=== PATIENT | female | born 1990 | race Caucasian/White ===

== ENCOUNTER 2018-12-02 06:19 | Emergency (ER) | payer MEDICARE, MEDICAID, SELFPAY ==
[2018-12-02 06:22] VITALS: BP 146/92; PULSE 87; RESP 16; TEMP 37; O2SAT 96
--- NOTE | 2018-12-02 06:27 | W.ED.GENAD ---
Discharge Plan Disposition Patient Disposition: HOME Condition: Stable Discharge Details Chief Complaint: DentalOral Clinical Impression: Odontalgia Primary Care Provider: Bruna Caballero ED Provider: Hung Bedolla Home Meds and New Rx's Prescriptions: New clindamycin HCl 300 mg capsule 300 mg PO Q6H Qty: 28 RF: 0 No Action hydroxyzine HCl 25 MG tablet 25 mg PO TID PRNQty: 0 RF: 0 trazodone 100 MG tablet 200 mg PO HS RF: 0 aripiprazole 5 MG tablet 5 mg PO DAILY RF: 0 lisdexamfetamine [Vyvanse] 60 MG capsule 60 mg PO DAILY RF: 0 metformin 500 MG tablet 500 mg PO Q12H Qty: 180 RF: 4 venlafaxine 75 MG tablet 75 mg PO DAILY RF: 0 venlafaxine 150 MG tablet extended release 24hr 2 tab PO DAILY RF: 0 levothyroxine 175 MCG tablet 175 mcg PO DAILY Qty: 90 RF: 1 levothyroxine 50 MCG tablet 50 mcg PO DAILY Qty: 90 RF: 4 ranitidine HCl 150 MG tablet 150 mg PO BID Qty: 180 RF: 4 metformin 500 MG tablet 500 mg PO BID Qty: 60 RF: 0 lithium carbonate 300 MG capsule 300 mg PO BID MDD 600 RF: 0 Discharge Instructions Instructions: Toothache (ED) Additional Instructions: Please follow-up with dentistry as discussed. Take antibiotics as prescribed. Tylenol and/or ibuprofen as needed for pain. Return for any acute concern Medical Decision Making 28-year-old female presents from home with 2 days of dental pain. She has numerous dental caries no partial fracture of left lower premolar. She is allergic to penicillin. Placed on a course of clindamycin. She understands the need to follow-up with dentistry. She is stable for outpatient management. HPI General Mode of arrival: ambulatory. Date/Time Provider Initiated Documentation: 12/02/18 06:24. Limitations to Documentation: no limitations. Information obtained by: patient. History of Present Illness 28 year old F presents to the emergency department with the chief complaint of Left lower dental pain x2 days, described as moderate, Quality is described as dull and constant, and is localized to the face and mouth. Patient reports no radiation. Patient started experiencing this day(s) and it has been constant. No relieving factors improve symptom(s), Eating worsens symptoms . Patient notes no other symptoms.. Patient did receive the following treatments prior to arrival, NSAID Related Data Home Medications Medication Instructions Recorded Confirmed hydroxyzine HCl 25 mg PO TID PRN #0 tab 10/21/14 03/18/16 lithium carbonate 300 mg PO BID MDD 600 11/12/15 03/18/16 aripiprazole 5 mg PO DAILY 06/15/16 lisdexamfetamine [Vyvanse] 60 mg PO DAILY tab-cap 06/15/16 metformin 500 mg PO Q12H #180 tab 11/02/16 levothyroxine 175 mcg PO DAILY #90 tab-cap 11/14/16 levothyroxine 50 mcg PO DAILY #90 tab-cap 01/10/17 ranitidine HCl 150 mg PO BID #180 tab-cap 03/01/17 metformin 500 mg PO BID #60 tab-cap 11/29/17 clindamycin HCl 300 mg PO Q6H #28 cap 12/02/18 Previous Rx's Medication Instructions Recorded metformin 500 mg PO BID #60 tab-cap 11/29/17 clindamycin HCl 300 mg PO Q6H #28 cap 12/02/18 Allergies Allergy/AdvReac Type Severity Reaction Status Date / Time Penicillins Allergy Intermediate Skin Rash Unverified 12/02/18 06:31 shellfish derived Allergy Unverified 12/02/18 06:31 Review of Systems Review of Systems No change to voice or drooling. 6 systems reviewed and otherwise negative [facility] Surgical History Cervical Conization/LEEP Family History Mother Diabetes Social History Smoking/Tobacco Use Status: Current every day Tobacco Type: cigarettes Drug use: Never Do you feel safe at home: Yes Do you feel safe in your relationship?: Yes Exam Narrative Exam Narrative: GEN: awake, alert, oriented 3. Pleasant, well groomed, interactive. HEAD: Normocephalic, atraumatic ENT: Mucous membranes moist, oropharynx with multiple dental caries. Partial fracture of left lower premolar. No fluctuance. External ear exam unremarkable EYES: PERRL, EOMI NECK: Full ROM, no DOMINIQUE, no menigismus EXT: Full ROM, no edema, no rash Neuro: Grossly normal neurologic exam, conversant, interactive. Psych: Speech fluent, thoughts congruent, affect normal
--- NOTE | 2018-12-02 06:30 | ED.GENADUL_ITS ---
Discharge Plan Disposition Patient Disposition: HOME Condition: Stable Discharge Details Chief Complaint: DentalOral Clinical Impression: Odontalgia Primary Care Provider: Bruna Caballero ED Provider: Hung Bedolla Home Meds and New Rx's Prescriptions: New clindamycin HCl 300 mg capsule 300 mg PO Q6H Qty: 28 RF: 0 No Action hydroxyzine HCl 25 MG tablet 25 mg PO TID PRNQty: 0 RF: 0 trazodone 100 MG tablet 200 mg PO HS RF: 0 aripiprazole 5 MG tablet 5 mg PO DAILY RF: 0 lisdexamfetamine [Vyvanse] 60 MG capsule 60 mg PO DAILY RF: 0 metformin 500 MG tablet 500 mg PO Q12H Qty: 180 RF: 4 venlafaxine 75 MG tablet 75 mg PO DAILY RF: 0 venlafaxine 150 MG tablet extended release 24hr 2 tab PO DAILY RF: 0 levothyroxine 175 MCG tablet 175 mcg PO DAILY Qty: 90 RF: 1 levothyroxine 50 MCG tablet 50 mcg PO DAILY Qty: 90 RF: 4 ranitidine HCl 150 MG tablet 150 mg PO BID Qty: 180 RF: 4 metformin 500 MG tablet 500 mg PO BID Qty: 60 RF: 0 lithium carbonate 300 MG capsule 300 mg PO BID MDD 600 RF: 0 Discharge Instructions Instructions: Toothache (ED) Additional Instructions: Please follow-up with dentistry as discussed. Take antibiotics as prescribed. Tylenol and/or ibuprofen as needed for pain. Return for any acute concern Medical Decision Making 28-year-old female presents from home with 2 days of dental pain. She has numerous dental caries no partial fracture of left lower premolar. She is allergic to penicillin. Placed on a course of clindamycin. She understands the need to follow-up with dentistry. She is stable for outpatient management. HPI General Mode of arrival: ambulatory . Date/Time Provider Initiated Documentation: 12/02/18 06:24 . Limitations to Documentation: no limitations . Information obtained by: patient . History of Present Illness 28 year old F presents to the emergency department with the chief complaint of Left lower dental pain x2 days, described as moderate, Quality is described as dull and constant, and is localized to the face and mouth. Patient reports no radiation. Patient started experiencing this day(s) and it has been constant. No relieving factors improve symptom(s), Eating worsens symptoms . Patient notes no other symptoms.. Patient did receive the following treatments prior to arrival, NSAID Related Data Home Medications Medication Instructions Recorded Confirmed hydroxyzine HCl 25 mg PO TID PRN #0 tab 10/21/14 03/18/16 lithium carbonate 300 mg PO BID MDD 600 11/12/15 03/18/16 aripiprazole 5 mg PO DAILY 06/15/16 lisdexamfetamine [Vyvanse] 60 mg PO DAILY tab-cap 06/15/16 metformin 500 mg PO Q12H #180 tab 11/02/16 levothyroxine 175 mcg PO DAILY #90 tab-cap 11/14/16 levothyroxine 50 mcg PO DAILY #90 tab-cap 01/10/17 ranitidine HCl 150 mg PO BID #180 tab-cap 03/01/17 metformin 500 mg PO BID #60 tab-cap 11/29/17 clindamycin HCl 300 mg PO Q6H #28 cap 12/02/18 Previous Rx's Medication Instructions Recorded metformin 500 mg PO BID #60 tab-cap 11/29/17 clindamycin HCl 300 mg PO Q6H #28 cap 12/02/18 Allergies Allergy/AdvReac Type Severity Reaction Status Date / Time Penicillins Allergy Intermediate Skin Rash Unverified 12/02/18 06:31 shellfish derived Allergy Unverified 12/02/18 06:31 Review of Systems Review of Systems No change to voice or drooling. 6 systems reviewed and otherwise negative [facility] Surgical History Cervical Conization/LEEP Family History Mother Diabetes Social History Smoking/Tobacco Use Status: Current every day Tobacco Type: cigarettes Drug use: Never Do you feel safe at home: Yes Do you feel safe in your relationship?: Yes Exam Narrative Exam Narrative: GEN: awake, alert, oriented 3. Pleasant, well groomed, interactive. HEAD: Normocephalic, atraumatic ENT: Mucous membranes moist, oropharynx with multiple dental caries. Partial fracture of left lower premolar. No fluctuance. External ear exam unremarkable EYES: PERRL, EOMI NECK: Full ROM, no DOMINIQUE, no menigismus EXT: Full ROM, no edema, no rash Neuro: Grossly normal neurologic exam, conversant, interactive. Psych: Speech fluent, thoughts congruent, affect normal
[2018-12-02] MEDS: Ibuprofen 800 MG TAB PO (06:37)
[2018-12-02] MEDS: Clindamycin 300 MG CAP PO (06:38)
== END 2018-12-02 06:42 | disposition home or self-care (01) ==
LOC: ER 07:55
PROVIDERS: Emergency Provider Emergency Medicine
DX: K08.89 Other specified disorders of teeth and supporting structures (principal); K02.9 Dental caries, unspecified
CPT/HCPCS: 99283

== ENCOUNTER 2019-05-13 02:46 | Outpatient (CLI) | payer MEDICARE, MEDICAID, SELFPAY | END 2019-05-13 03:06 | PROVIDERS: Visit Provider Nurse Practitioner Family | DX: Z79.899 Other long term (current) drug therapy (principal); R00.0 Tachycardia, unspecified | CPT/HCPCS: 93005; 93010 ==

== ENCOUNTER 2019-06-23 00:07 | Outpatient (CLI) | payer MEDICARE, MEDICAID, SELFPAY ==
--- NOTE | 2019-06-23 09:10 | DI.RAD_ITS ---
EXAM: XR CHEST 2V PA LATERAL INDICATION: DYSPNEA, R06.00. COMPARISON: No exams were available for comparison TECHNIQUE: 2D digital imaging was performed. FINDINGS: The heart is enlarged. There is prominence of the pulmonary vasculature and peribronchial thickening . There are minimally increased interstitial changes. There is mild scarring at the right lung apex . No effusions or focal areas of consolidation are seen. IMPRESSION: Cardiomegaly and mild CHF.
--- NOTE | 2019-06-23 09:15 | DI.RAD_ITS ---
EXAM: XR HIP RT COMPLETE AP PELVIS INDICATION: HIP JOINT PAIN RT, [id number]. COMPARISON: No exams were available for comparison TECHNIQUE: 2D digital imaging was performed. FINDINGS: The exam is limited by the patient's body habitus and upright technique. The hip joint spaces are we ll maintained. No bony deformity or erosive soft tissue or joint space calcifications are seen. IMPRESSION: Negative pelvis and right hip.
== END 2019-06-23 00:27 ==
PROVIDERS: PCP Nurse Practitioner Family; Visit Provider Nurse Practitioner Family
DX: M25.551 Pain in right hip (principal); R06.00 Dyspnea, unspecified; I51.7 Cardiomegaly; I50.9 Heart failure, unspecified
CPT/HCPCS: 36415; 80053; 71046; 73502; 83880; 84443; 85025

== ENCOUNTER 2019-06-23 00:14 | Outpatient (CLI) | payer MEDICARE, MEDICAID, SELFPAY ==
[2019-06-23 10:43] LABS: Abs Immature Grans 0.01 k/cumm (0.0-0.09); Absolute Basophil Count 0.05 k/cumm (0.0-0.2); Absolute Eosinophil Count 0.15 k/cumm (0.0-0.7); Absolute Lymphocyte Count 1.98 k/cumm (1.2-3.4); Absolute Monocyte Count 0.61 k/cumm (0.11-0.7); Absolute Neutrophil Count 6.12 k/cumm (1.2-6.7); Basophils % 0.6; Eosinophils % 1.7; HCT 49.5 % (36.0-46.0); HGB 16.1 g/dL (12.0-15.5); Immature Grans % 0.1; Lymphocytes % 22.2; Mean Corp. HGB Concentration 32.5 g/dL (32.0-36.0); Mean Corpuscular Hemoglobin 31.5 pg (27.0-33.0); Mean Corpuscular Volume 96.9 fL (80-95); Mean Platelet Volume 10.8 fL (8.0-11.0); Monocytes % 6.8; Neutrophils % 68.6; Platelet Count 243 x1000/uL (130-400); RBC 5.11 m/cumm (4.00-5.20); RBC Distribution Width 14.6 % (11.7-14.6); White Blood Cell Count 8.92 k/cumm (4.4-10.8)
[2019-06-23 11:21] LABS: ALT 28 U/L (14-59); AST 21 U/L (15-37); Albumin 3.6 g/dL (3.4-5.0); Alkaline Phosphatase 77 U/L (46-116); Anion Gap 6.3 mmol/L (3-11); BUN 9 mg/dL (7-18); Bilirubin, Total 0.5 mg/dL (0.2-1.0); CO2 32.7 mmol/L (21.0-32.0); CREATININE 0.62 mg/dL (0.55-1.02); Calcium 8.9 mg/dL (8.5-10.1); Chloride 100 mmol/L (98-107); Glucose 85 mg/dL (74-106); Potassium 4.5 mmol/L (3.5-5.1); Sodium 139 mmol/L (136-145); TSH 12.31 uIU/mL (0.36-3.74); Total Protein 7.3 g/dL (6.4-8.2)
[2019-06-23 14:37] LABS: NT-proBNP 83 pg/mL (<300)
== END 2019-06-23 00:34 ==
PROVIDERS: PCP Nurse Practitioner Family; Visit Provider Clinical Nurse Specialist Psychiatric/Mental Health
DX: E03.9 Hypothyroidism, unspecified (principal); I50.9 Heart failure, unspecified; F32.9 Major depressive disorder, single episode, unspecified; K76.0 Fatty (change of) liver, not elsewhere classified; R53.83 Other fatigue; F98.8 Other specified behavioral and emotional disorders with onset usually occurring in childhood and adolescence
CPT/HCPCS: 36415; 80053; 83880; 84443; 85025

== ENCOUNTER 2019-06-30 00:11 | Outpatient (CLI) | payer MEDICARE, MEDICAID, SELFPAY ==
--- NOTE | 2019-06-30 09:50 | DI.NM_ITS ---
APPROVED REPORT Exam: Pharmacologic Patient Location: Out-Patient Room/Bed: Stress Nurse: Shea Jules RN BMI: 62.69 Baseline Rhythm: Sinus rhythm. Indications: Edema. Abnormal finding on EKG. Medical History Medical History: CHF. Cardiomegaly. Allergies: No known drug allergies Cardiac Risk Factors: Smoking. Obesity. Pretest Chest Pain Characteristics: Exertional Chest pain Exercise History: Sedentary Physical Disabilities: Legs, Hips. Lung Sounds: Clear to auscultation Heart Sounds: Regular Stress Test Details Test: Pharmacologic stress testing performed using 0.4 mg of regadenoson per 5 mL given IV over 10 s econds. Nuclear Acquisition: Rest Tc-99m/Stress Tc-99m 1 day Rest Isotope: Tc-99m Sestamibi. Dose: 15.0 Date: 06/30/2019 Injection Time: 0815 Stress Isotope: Tc-99m Sestamibi. Dose: 46.2 Date: 06/30/2019 Injection Time: 1000 HR Max Heart Rate (APMHR): 190 bpm Resting HR Supine: 85 bpm Target HR (85% APMHR): 161 bpm Max HR Achieved: 110 bpm % of APMHR: 57 Recovery HR: 97 bpm HR response to stress: Normal HR response to stress BP Resting BP Supine: 122/98 mmHg Max BP: 154/100 mmHg Recovery BP: 154/100 mmHg BP response to stress: Normal blood pressure response to stress. ECG Resting ECG: Sinus Rhythm ST Change: Normal Stress ECG: Sinus Rhythm ST Change: No significant St segment changes. Arrhythmia: None Recovery ECG: Sinus Rhythm Recovery ST Change: No significant ST segment changes. Clinical Stress Symptoms: No significant symptoms post Lexiscan injection. Stress ECG Conclusion 1. There was no evidence of ischemia on ECG during the the stress portion of this exam. Protocol Used: Regadenoson Stress Test Summary STAGE HR BP Symptoms NOTES Supine 85 122/98 1 min post lexiscan injection 110 128/100 3 min post lexiscan injection 103 142/100 6 min post lexiscan injection 98 150/102 9 min post lexiscan injection 97 154/100 MPI Conclusion The patient's ejection fraction during stress was estimated to be 61%. There is significant bowel attenuation which affects the interpretation of this test. Overall the ex am is inconclusive though there is no evidence of significant ischemia. Radiologist Interpretation Radiologist agrees with Store Host's Interpretation. Radiologist Interpretation by: Alejandra Leonard MD Interpretation Date/Time: 07/01/2019 11:59:38
[2019-06-30] MEDS: Regadenoson 0.4 MG/5 ML SYR IVP (10:37)
== END 2019-06-30 00:31 ==
PROVIDERS: PCP Nurse Practitioner Family; Visit Provider Nurse Practitioner Family
DX: R07.9 Chest pain, unspecified (principal); R60.0 Localized edema; R94.31 Abnormal electrocardiogram [ECG] [EKG]; I50.9 Heart failure, unspecified; I51.7 Cardiomegaly; F17.200 Nicotine dependence, unspecified, uncomplicated
CPT/HCPCS: 78452; 93016; 93018; 93017; J2785

== ENCOUNTER 2019-07-01 10:59 | Outpatient (REF) | payer MEDICARE, MEDICAID, SELFPAY ==
[2019-07-01 18:48] LABS: Anion Gap 6.4 mmol/L (3-11); BUN 15 mg/dL (7-18); CO2 32.6 mmol/L (21.0-32.0); CREATININE 0.65 mg/dL (0.55-1.02); Calcium 9.2 mg/dL (8.5-10.1); Chloride 103 mmol/L (98-107); Glucose 114 mg/dL (74-106); Potassium 4.1 mmol/L (3.5-5.1); Sodium 142 mmol/L (136-145)
[2019-07-03 10:19] LABS: HBs Antibody, Quant <3.1 mIU/mL (See Note); Hepatitis B Surface Ab Negative (See Note)
[2019-07-03 10:32] LABS: Hepatitis B Surface Ag Negative (Negative)
== END 2019-07-01 11:19 ==
LOC: NCHCN 10:59
PROVIDERS: PCP Nurse Practitioner Family; Visit Provider Nurse Practitioner Family
DX: R60.9 Edema, unspecified (principal); I50.9 Heart failure, unspecified; E03.9 Hypothyroidism, unspecified; K76.0 Fatty (change of) liver, not elsewhere classified; F32.9 Major depressive disorder, single episode, unspecified; R53.83 Other fatigue
CPT/HCPCS: 80048; 86706; 87340

== ENCOUNTER 2019-08-26 00:21 | Outpatient (CLI) | payer MEDICARE, MEDICAID, SELFPAY ==
--- NOTE | 2019-08-26 10:34 | DI.US_ITS ---
APPROVED REPORT EXAM: Comprehensive 2D, Doppler, and color-flow Echocardiogram Patient Location: Out-Patient Mortising Machine Operator: Chyna Durant RDCS (AE) Rhythm: NSR Indications: dyspnea r06.00, abnormal finding on EKG r94.31 Conclusion Left Ventricle : The left ventricle is normal size. The left ventricular systolic function is normal. The left ventricular ejection fraction is within the normal range. There is normal left ventricular wall thickness. There is normal LV segmental wall motion. The left ventricular diastolic function is normal. LVEF is estimated to be 55-60%. Right Ventricle : The right ventricle is normal size. The right ventricular systolic function appears normal. Atria : The left atrium size is normal. The right atrium size is normal. Valves: There are no hemodynamically significant valvular lesions Great Vessels : IVC is normal in size and collapses >50% with inspiration. There is no prior echocardiogram available for comparison. Wall motion Left Ventricle The left ventricle is normal size. The left ventricular systolic function is normal. The left ventric ular ejection fraction is within the normal range. There is normal left ventricular wall thickness. T here is normal LV segmental wall motion. The left ventricular diastolic function is normal. LVEF is e stimated to be 55-60%. Right Ventricle The right ventricle is normal size. The right ventricular systolic function appears normal. Atria The left atrium size is normal. The right atrium size is normal. Aortic Valve Aortic valve is probably trileaflet. There is no aortic valvular stenosis. No aortic regurgitation is present. Mitral Valve The mitral valve is normal in structure. There is no mitral valve regurgitation noted. Tricuspid Valve The tricuspid valve is not well visualized. Trace tricuspid regurgitation. Great Vessels The aortic root is normal in size. IVC is normal in size and collapses >50% with inspiration. Pericardium There is no pericardial effusion. 2D Dimensions IVSd 1.05 cm F: 0.6-1.0 LV EDV A2C 142.4 mL PWd 0.95 cm F: 0.6 - 1.0 LV EDV A4C 77.9 mL LVDd 5.25 cm F: 3.8 - 5.2 LA Volume Index Biplane 26.9 mL/m2 LVDs 3.45 cm F: 2.2 - 3.5 LA Area A4C 17.97 cm2 Aortic Root 2.75 cm F: 2.7 - 3.3 LA Area A2C 20.09 cm2 RA Area A4C 17.10 cm2 EF AP4 64.4 % LVOT 2.05 cm (M/F) 1.5-2.5 EF AP2 55.8 % Ascending Aorta 2.51 cm F: 2.3 - 3.1 EF BP 60.0 % LVEF (Teich) 62.8 % IVC 1.50 cm LVEF (Sullivan's) 60.00 % F: 54 - 74 TAPSE 2.22 cm (M/F) <1.7 LV Volume 81.42 mL F: 46 - 106 LV Volume Index 37.17 mL/m2 F: 29 - 61 FS 34.20 % LV Diastology MV E' medial 0.106 (>0.07 m/s) E/A Ratio 1.1 LV E/e MED 8.30 (<14) TR Peak Velocity 2.74 m/s MV E' lateral 0.117 (>0.1 m/s) LV E/e LAT 7.50 (<14) LA vol/ BSA A2C s A-L 30.1 mL/m2 LA vol/ BSA A4C s A-L 23.7 mL/m2 Aortic Valve LVOT Area 3.39 cm2 AoV Area Vmax 2.46 cm2 LVOT Vmax 0.92 m/s AoV Area/ BSA (Vmax) 1.12 cm2/m2 LVOT Mean Leighton. 0.65 m/s LIZZIE Mean Leighton. 2.81 cm2 LVOT Peak Gr. 3.4 mmHg LIZZIE Mean Leighton. Index 1.28 cm2/m2 LVOT Mean Gr. 1.9 mmHg LVOT VTI 0.170 m AoV Vmax 1.27 (0.5-1.3 m/s) AoV Mean Leighton. 0.78 m/s AoV Peak Grad 6.5 mmHg LVOT SV 57.55 mL AoV Mean Grad 2.7 (<5 mmHg) AoV VTI 0.198 (0.18-0.25 m) AoV Area VTI 2.90 (2.5-4.5 cm2) AoV Area/ BSA (VTI) 1.32 cm/m2 Mitral Valve MV E Max Leighton. 0.88 (0.4-1.3 m/s) MVA VTI 3.95 (4.0-6.0 cm2) MV A Velocity 0.80 (0.4-1.3 m/s) RVOT Peak Gr. 1.43 mmHg E/A Ratio 1.10 RVOT Mean Gr. 0.75 mmHg MV Decel. Time 156 (160-240 msec) MV PHT 45 msec MVA PHT 4.85 cm2 PV Peak Velocity 1.01 (0.5-1.5 m/s) RVOT Peak Leighton. 0.60 m/s RVOT VTI 0.100 m Tricuspid Valve TR P. Gradient 29.9 mmHg TV Regurg Vmax 2.74 m/s RAP Estimate 3.00 mmHg RVSP 33.0 mmHg
== END 2019-08-26 00:41 ==
PROVIDERS: PCP Nurse Practitioner Family; Visit Provider Nurse Practitioner Family
DX: R06.00 Dyspnea, unspecified (principal); R94.31 Abnormal electrocardiogram [ECG] [EKG]; I50.9 Heart failure, unspecified
CPT/HCPCS: 93306

== ENCOUNTER 2019-09-05 12:54 | Outpatient (REF) | payer MEDICARE, MEDICAID, SELFPAY ==
[2019-09-05 18:33] LABS: HCT 51.7 % (36.0-46.0); HGB 17.5 g/dL (12.0-15.5); Mean Corp. HGB Concentration 33.8 g/dL (32.0-36.0); Mean Corpuscular Hemoglobin 32.1 pg (27.0-33.0); Mean Corpuscular Volume 94.9 fL (80-95); Mean Platelet Volume 11.9 fL (8.0-11.0); Platelet Count 216 x1000/uL (130-400); RBC 5.45 m/cumm (4.00-5.20); White Blood Cell Count 8.32 k/cumm (4.4-10.8)
[2019-09-05 18:44] LABS: COMMENT (LAB VIEW ONLY) 62.91 mg/dL; Microalb ug/mg Crea 56.4 ug/mg Cr
[2019-09-05 18:55] LABS: ALT 33 U/L (14-59); AST 24 U/L (15-37); Albumin 3.5 g/dL (3.4-5.0); Alkaline Phosphatase 103 U/L (46-116); Anion Gap 7.8 mmol/L (3-11); BUN 9 mg/dL (7-18); Bilirubin, Total 0.2 mg/dL (0.2-1.0); CO2 31.2 mmol/L (21.0-32.0); CREATININE 0.68 mg/dL (0.55-1.02); Calcium 8.9 mg/dL (8.5-10.1); Chloride 100 mmol/L (98-107); Glucose 106 mg/dL (74-106); Potassium 4.5 mmol/L (3.5-5.1); Sodium 139 mmol/L (136-145); TSH (W/Ref FT4) 7.22 uIU/mL (0.36-3.74); Total Protein 7.4 g/dL (6.4-8.2)
== END 2019-09-05 13:14 ==
LOC: NCHCN 12:54
PROVIDERS: PCP Nurse Practitioner Family; Visit Provider Nurse Practitioner Family
DX: I50.9 Heart failure, unspecified (principal); R60.9 Edema, unspecified; R53.83 Other fatigue; E03.9 Hypothyroidism, unspecified
CPT/HCPCS: 80053; 85027; 82043; 82570; 84439; 84443

== ENCOUNTER 2020-03-23 14:41 | Outpatient (REF) | payer MEDICARE, MEDICAID, SELFPAY ==
[2020-03-23 15:31] LABS: HCT 53.2 % (36.0-46.0); HGB 17.4 g/dL (11.2-15.7); MCHC 32.7 % (32.0-36.0); MPV 12.2 fL (8.0-11.0); Platelet Count 200 10^3/uL (130-400); RBC 5.43 10^6/uL (3.93-5.22); RDW 13.7 % (11.7-14.6); RDW-SD 49.7 fL; WBC 7.68 10^3/uL (4.4-10.8)
[2020-03-23 16:36] LABS: ALT 27 U/L (14-59); AST 24 U/L (15-37); Albumin 3.5 g/dL (3.4-5.0); Alkaline Phosphatase 75 U/L (46-116); Anion Gap 5.5 mmol/L (3-11); BUN 13 mg/dL (7-18); Bilirubin, Total 0.3 mg/dL (0.2-1.0); CO2 33.5 mmol/L (21.0-32.0); CREATININE 0.79 mg/dL (0.55-1.02); Calcium 9.1 mg/dL (8.5-10.1); Chloride 98 mmol/L (98-107); Glucose 102 mg/dL (74-106); NT-proBNP 114 pg/mL (<300); Potassium 3.8 mmol/L (3.5-5.1); Sodium 137 mmol/L (136-145); TSH (W/Ref FT4) 6.38 uIU/mL (0.36-3.74)
[2020-03-24 14:28] LABS: Abs Immature Grans 0.02 10^3/uL (0.0-0.06); Absolute Basophil Count 0.05 10^3/uL (0.0-0.2); Absolute Eosinophil Count 0.22 10^3/uL (0.0-0.7); Absolute Lymphocyte Count 1.63 10^3/uL (1.2-3.4); Absolute Neutrophil Count 5.12 10^3/uL (1.2-6.7); Basophils % 0.7; Eosinophils % 2.9; Immature Grans % 0.3; Lymphocytes % 21.6; Monocytes % 6.6; Neutrophils % 67.9
[2020-03-24 14:41] LABS: Diff Comment Agrees w/ Instrument; RBC Morphology Normal
[2020-03-26 13:04] LABS: Erythropoietin 10.6 mIU/mL (2.6 - 18.5)
== END 2020-03-23 15:01 ==
LOC: NCHCN 14:41
PROVIDERS: PCP Nurse Practitioner Family; Visit Provider Nurse Practitioner Family
DX: R60.9 Edema, unspecified (principal); E03.9 Hypothyroidism, unspecified; I50.9 Heart failure, unspecified; D75.1 Secondary polycythemia
CPT/HCPCS: 80053; 82668; 85027; 83880; 84439; 84443; 85007

== ENCOUNTER → 2020-04-20 13:39 | Outpatient (BNVA) | payer MEDICARE, MEDICAID, SELFPAY | PROVIDERS: PCP Nurse Practitioner Family; Referring Provider Nurse Practitioner Family; Visit Provider Internal Medicine Cardiovascular Disease | DX: R00.0 Tachycardia, unspecified (principal); G47.30 Sleep apnea, unspecified; E66.9 Obesity, unspecified | CPT/HCPCS: 99203; 99214 ==

== ENCOUNTER 2020-05-28 19:52 | Outpatient (REF) | payer MEDICARE, MEDICAID, SELFPAY ==
[2020-05-28 22:35] LABS: Anion Gap 9.1 mmol/L (3-11); BUN 15 mg/dL (7-18); CO2 33.9 mmol/L (21.0-32.0); CREATININE 0.78 mg/dL (0.55-1.02); Calcium 9.6 mg/dL (8.5-10.1); Chloride 96 mmol/L (98-107); Glucose 100 mg/dL (74-106); Potassium 4.2 mmol/L (3.5-5.1); Sodium 139 mmol/L (136-145); TSH (W/Ref FT4) 2.61 uIU/mL (0.36-3.74)
== END 2020-05-28 20:12 ==
LOC: NCHCN 19:52
PROVIDERS: PCP Nurse Practitioner Family; Visit Provider Nurse Practitioner Family
DX: E03.9 Hypothyroidism, unspecified (principal); L68.0 Hirsutism
CPT/HCPCS: 80048; 82533; 84443

== ENCOUNTER 2020-06-04 13:52 | Outpatient (REF) | payer MEDICARE, MEDICAID, SELFPAY ==
--- NOTE | 2020-06-04 13:40 | PAPFT_PTH ---
PATIENT: Fayn Mcknight LOC: [facility] U#:[id number] AGE/SX: 29/F ROOM: RE06/04/[address]: Pernell Pham : 1990 BED: DIS: 06/04/2020 SPEC #: [id number] RECD: 06/07/20 13:09 STATUS: BENITA REGianni #: [id number] SMITH: 06/04/20 13:[address]: Pernell Pham DEPT: [facility] Cytology RECD BY: Asha Khanna Tissues: 1 - CX/ENDOCX FOR PAP SMEARS Procedures: PAP THIN PREP/UVM Screening HPV DNA PROBE Comments: [id number] ([id number] [facility])
== END 2020-06-04 14:12 ==
LOC: NCHCN 13:52
PROVIDERS: PCP Nurse Practitioner Family; Visit Provider Nurse Practitioner Family
DX: Z12.4 Encounter for screening for malignant neoplasm of cervix (principal); Z11.51 Encounter for screening for human papillomavirus (HPV)
CPT/HCPCS: 88142; 87624

== ENCOUNTER 2020-07-02 19:07 | Outpatient (REF) | payer MEDICARE, MEDICAID, SELFPAY ==
[2020-07-02 18:12] LABS: Abs Immature Grans 0.04 10^3/uL (0.0-0.06); Absolute Eosinophil Count 0.21 10^3/uL (0.0-0.7); Absolute Lymphocyte Count 2.23 10^3/uL (1.2-3.4); Absolute Monocyte Count 0.67 10^3/uL (0.1-0.8); Absolute Neutrophil Count 7.27 10^3/uL (1.2-6.7); HCT 53.9 % (36.0-46.0); HGB 17.7 g/dL (11.2-15.7); Immature Grans % 0.4; Lymphocytes % 21.2; MCH 32.4 pg (27.0-33.0); MCHC 32.8 % (32.0-36.0); MCV 98.5 fL (80-95); Monocytes % 6.4; Nucleated RBC 0 %; Platelet Count 221 10^3/uL (130-400); RBC 5.47 10^6/uL (3.93-5.22); RDW 13.1 % (11.7-14.6); RDW-SD 47.5 fL; WBC 10.52 10^3/uL (4.4-10.8)
[2020-07-02 18:14] LABS: Bilirubin Negative (Negative); Blood Large (Negative); Clarity Sl Cloudy (Clear); Glucose Negative (Negative); Ketones Negative (Negative); Leukocyte Esterase Trace (Negative); Nitrite Negative (Negative); Urobilinogen 0.2 EU/dL (Up TO 0.2)
[2020-07-02 18:27] LABS: Bacteria Moderate HPF (Negative); C & S Indicated? C&S Done As Ordered; Casts Negative LPF (Negative); Crystals Negative HPF (Negative); Epithelial Cells Few HPF (Negative); Mucus Negative (Negative); RBC >50 HPF (0-2)
[2020-07-02 18:35] LABS: ALT 24 U/L (14-59); AST 23 U/L (15-37); Alkaline Phosphatase 97 U/L (46-116); Anion Gap 6.5 mmol/L (3-11); BUN 20 mg/dL (7-18); Bilirubin, Total 0.3 mg/dL (0.2-1.0); CO2 34.5 mmol/L (21.0-32.0); CREATININE 1.07 mg/dL (0.55-1.02); Calcium 9.7 mg/dL (8.5-10.1); Chloride 97 mmol/L (98-107); Estimated GFR 59.81 (mL/min/1.73m2); Glucose 86 mg/dL (74-106); NT-proBNP 38 pg/mL (<300); Potassium 4.2 mmol/L (3.5-5.1); Sodium 138 mmol/L (136-145)
== END 2020-07-02 19:27 ==
LOC: NCHCN 19:07
PROVIDERS: PCP Nurse Practitioner Family; Visit Provider Nurse Practitioner Family
DX: D75.1 Secondary polycythemia (principal); I50.9 Heart failure, unspecified; R60.0 Localized edema; R82.998 Other abnormal findings in urine
CPT/HCPCS: 80053; 81003; 81015; 83880; 85025; 87086

== ENCOUNTER 2020-07-15 12:51 | Outpatient (REF) | payer MEDICARE, MEDICAID, SELFPAY ==
[2020-07-15 14:19] LABS: HCT 52.2 % (36.0-46.0); HGB 17.4 g/dL (11.2-15.7); MCH 32.4 pg (27.0-33.0); MCHC 33.3 % (32.0-36.0); MCV 97.2 fL (80-95); MPV 11.8 fL (8.0-11.0); Platelet Count 230 10^3/uL (130-400); RBC 5.37 10^6/uL (3.93-5.22); RDW 12.9 % (11.7-14.6); RDW-SD 46.2 fL; WBC 9.15 10^3/uL (4.4-10.8)
[2020-07-15 14:52] LABS: Anion Gap 6.2 mmol/L (3-11); BUN 16 mg/dL (7-18); CO2 33.8 mmol/L (21.0-32.0); CREATININE 0.74 mg/dL (0.55-1.02); Calcium 9.6 mg/dL (8.5-10.1); Chloride 97 mmol/L (98-107); Glucose 90 mg/dL (74-106); Magnesium 1.7 mg/dL (1.8-2.4); Potassium 4.3 mmol/L (3.5-5.1); Sodium 137 mmol/L (136-145); Vitamin B12 597 pg/mL (193-986)
[2020-07-15 14:53] LABS: Folate > 20.0 ng/mL (8.6-20.0)
== END 2020-07-15 13:11 ==
LOC: NCHCN 12:51
PROVIDERS: PCP Nurse Practitioner Family; Visit Provider Family Medicine
DX: R60.0 Localized edema (principal)
CPT/HCPCS: 80048; 85027; 82607; 82746; 83735

== ENCOUNTER 2020-07-22 08:56 | Outpatient (REF) | payer MEDICARE, MEDICAID, SELFPAY ==
[2020-07-27 23:50] LABS: Cortisol, Saliva <50 ng/dL
== END 2020-07-22 09:16 ==
LOC: LBO 08:56
PROVIDERS: PCP Nurse Practitioner Family; Visit Provider Nurse Practitioner Family
DX: D75.1 Secondary polycythemia (principal)
CPT/HCPCS: 82530

== ENCOUNTER 2020-07-30 04:14 | Outpatient (CLI) | payer MEDICARE, MEDICAID, SELFPAY ==
[2020-08-05 14:43] LABS: Dexamethasone Suppression 2 ug/dL
== END 2020-07-30 04:34 ==
PROVIDERS: PCP Nurse Practitioner Family; Visit Provider Nurse Practitioner Family
DX: D75.1 Secondary polycythemia (principal); R60.9 Edema, unspecified; L68.0 Hirsutism
CPT/HCPCS: 36415; 82533

== ENCOUNTER 2020-08-16 03:55 | Outpatient (CLI) | payer MEDICARE, MEDICAID, SELFPAY ==
[2020-08-17 12:35] LABS: COVID-19 RT-PCR UVMMC Result Negative (Negative)
== END 2020-08-16 04:15 ==
PROVIDERS: PCP Nurse Practitioner Family; Visit Provider Internal Medicine Sleep Medicine
DX: Z11.52 Encounter for screening for COVID-19 (principal); Z01.818 Encounter for other preprocedural examination
CPT/HCPCS: U0003; U0005

== ENCOUNTER 2020-09-03 18:43 | Outpatient (REF) | payer MEDICARE, MEDICAID, SELFPAY ==
[2020-09-03 17:02] LABS: Abs Immature Grans 0.02 10^3/uL (0.0-0.06); Absolute Basophil Count 0.05 10^3/uL (0.0-0.2); Absolute Eosinophil Count 0.24 10^3/uL (0.0-0.7); Absolute Lymphocyte Count 1.63 10^3/uL (1.2-3.4); Absolute Monocyte Count 0.63 10^3/uL (0.1-0.8); Absolute Neutrophil Count 5.98 10^3/uL (1.2-6.7); Basophils % 0.6; Eosinophils % 2.8; HCT 50.2 % (36.0-46.0); HGB 16.7 g/dL (11.2-15.7); Immature Grans % 0.2; Lymphocytes % 19.1; MCH 32.6 pg (27.0-33.0); MCHC 33.3 % (32.0-36.0); MPV 11.7 fL (8.0-11.0); Monocytes % 7.4; Neutrophils % 69.9; Nucleated RBC 0 %; Platelet Count 208 10^3/uL (130-400); RBC 5.12 10^6/uL (3.93-5.22); RDW 13.2 % (11.7-14.6); RDW-SD 48.1 fL; WBC 8.55 10^3/uL (4.4-10.8)
[2020-09-03 17:17] LABS: ALT 30 U/L (14-59); AST 22 U/L (15-37); Albumin 3.5 g/dL (3.4-5.0); Alkaline Phosphatase 85 U/L (46-116); Anion Gap 7.6 mmol/L (3-11); BUN 17 mg/dL (7-18); Bilirubin, Total 0.3 mg/dL (0.2-1.0); CO2 32.4 mmol/L (21.0-32.0); CREATININE 0.7 mg/dL (0.55-1.02); Calcium 9.2 mg/dL (8.5-10.1); Chloride 98 mmol/L (98-107); Glucose 95 mg/dL (74-106); Potassium 4.3 mmol/L (3.5-5.1); Sodium 138 mmol/L (136-145); TSH (W/Ref FT4) 4.53 uIU/mL (0.36-3.74); Total Protein 7.5 g/dL (6.4-8.2)
[2020-09-03 18:20] LABS: FREE T4 0.96 ng/dL (0.76-1.46)
== END 2020-09-03 18:44 | disposition home or self-care (01) ==
LOC: NCHCN 18:43
PROVIDERS: PCP Nurse Practitioner Family; Visit Provider Nurse Practitioner Family
DX: I10 Essential (primary) hypertension (principal); K76.0 Fatty (change of) liver, not elsewhere classified; D75.1 Secondary polycythemia; E03.9 Hypothyroidism, unspecified
CPT/HCPCS: 80053; 83735; 84439; 84443; 85025

== ENCOUNTER 2020-10-07 01:43 | Outpatient (CLI) | payer MEDICARE, MEDICAID, SELFPAY ==
--- NOTE | 2020-10-07 10:15 | DI.CT_ITS ---
EXAM: CT ABDOMEN PELVIS W CLINICAL HISTORY: LOW ABD PAIN,R10.30,NAUSEA,R11.0. TECHNIQUE: Imaging Protocol: Axial computed tomography images with coronal and sagittal reformatted images were created and reviewed CONTRAST MATERIAL: Intravenous: Omnipaque 100cc Oral: Yes COMPARISON: No exams were available for comparison FINDINGS: VISUALIZED LUNG BASES: No nodules nor pleural effusions evident. There appears to be a healed fractu re of the left 8th rib. ABDOMEN: There is no ascites. LIVER: There are no obvious focal hepatic lesions evident . GALLBLADDER/BILIARY: No obvious gallbladder pathology. CBD is not dilated. PANCREAS: No evidence of pancreatic mass nor dilatation of the pancreatic duct. SPLEEN: Spleen is not enlarged. No obvious intrasplenic lesions. Splenic and portal veins are paten t. ADRENALS: There are no significant adrenal masses. KIDNEYS:No cysts evident. No solid renal masses. No calculi nor hydronephrosis.. ABDOMINAL AORTA: Abdominal aorta is not enlarged. LYMPH NODES:There is no retroperitineal nor paraaortic adenopathy. ABDOMINAL WALL/GI: Small fat containing umbilical hernia. No bowel obstruction. PELVIS: GI: There is no evidence of appendicitis.No evidence of sigmoid diverticulitis. LYMPH NODES: There is no intrapelvic nor inguinal adenopathy. REPRODUCTIVE: Uterus and adnexal regions appear age-appropriate. Ovaries appear symmetrical. There is no free fluid in the pelvis. URINARY BLADDER: No calculi nor obvious masses evident OSSEOUS: There is a healed fracture of the left 8th rib noted. In addition, the posterior right side of the sacrum appears deficient with smooth borders, possibly developmental. This appears to be jus t below level of the caudal aspect of the thecal sac. There is no evidence of obvious intra sacral m eningocele. No evidence of presacral mass. IMPRESSION: 1. No acute findings in the abdomen and pelvis. Also no ascites. 2. There is a healed fracture of the 8th rib incidentally noted. 3. There is partial absence of the right side of the sacrum. This appears either smooth erosion or d evelopmental. There is no adjacent soft tissue mass. There is no abnormal fluid collection at this level. Correlation with any prior remote trauma in this region is recommended. RADIATION DOSE DELIVERED: 1,439.05mGy.cm Total DLP DATA REPOSITORY: All CT scans at this facility are submitted to the National Radiology Data Registry (NRDR) Dose Index Registry (DIR) with the [employer] (A[employer]). RADIATION OPTIMIZATION: All CT scans at this facility use at least one of these dose optimization te chniques: automated exposure control; mA and/or kV adjustment per patient size (includes targeted exa ms where dose is matched to clinical indication); or iterative reconstruction.
[2020-10-07] MEDS: Normal Saline - Diluent 50 ML VIAL IV (10:24)
[2020-10-07] MEDS: Omnipaque 350 MG/ML 100 ML BTL IJ (10:24)
[2020-10-07] MEDS: Normal Saline Flush 10 ML SYR IVP (10:25)
== END 2020-10-07 02:03 ==
PROVIDERS: PCP Nurse Practitioner Family; Visit Provider Nurse Practitioner Family
DX: R10.30 Lower abdominal pain, unspecified (principal); R11.0 Nausea
CPT/HCPCS: 74177; J3490

== ENCOUNTER 2020-10-30 21:27 | Emergency (ER) | payer MEDICARE, MEDICAID, SELFPAY ==
[2020-10-30 21:35] VITALS: BP 139/88; PULSE 98; RESP 16; TEMP 36.4; O2SAT 95
--- NOTE | 2020-10-30 21:44 | ED.GENADUL_ITS ---
Discharge Plan Disposition Patient Disposition: HOME Condition: Good Discharge Details Clinical Impression: Pain, dental Primary Care Provider: Pernell Pham ED Provider: Matty De Anda Home Meds and New Rx's Prescriptions: New penicillin V potassium 500 mg tablet 500 mg PO QID 10 Days Qty: 40 RF: 0 No Action levothyroxine [Synthroid] 25 mcg tablet 25 mcg PO DAILY RF: 0 furosemide 20 mg tablet 20 mg PO BID RF: 0 trazodone 100 mg tablet 200 mg PO QHS PRNRF: 0 spironolactone 50 mg tablet 50 mg PO DAILY RF: 0 chlorthalidone 25 mg tablet 25 mg PO DAILY RF: 0 methadone 10 mg/5 mL Solution 100 mg PO DAILY RF: 0 Discharge Instructions Instructions: Toothache (ED) Additional Instructions: The block we administered should help improve your pain. Please take 800 mg of ibuprofen every 6 hours and 1000 mg of Tylenol every 6 hours to help with the inflammation and pain. These are the maximum doses. Please take the antibiotic as directed to help with the infection in your tooth. It has been faxed to your [facility]. Please use the dental list that we have provided to contact the dentist for prompt follow-up and evaluation for tooth removal. If you notice any worsening of your symptoms, or any new symptoms such as difficulty swallowing, difficulty breathing, vomiting, diarrhea, fever, chills, shortness of breath, chest pain, numbness, weakness, or fainting , please return immediately to the emergency department for reevaluation. Please follow up with your primary care provider as soon as possible for reassessment and reevaluation. As always, it was a pleasure participating in your medical care today. Referrals: Pernell Pham, COLLARETTE SEPARATOR [Primary Care Provider] - Medical Decision Making 30-year-old female with a history of dental disease presents today for left upper and left lower dental pain. Symptoms have been present for the last few days have been gradually worsening. Symptoms were initially managed well with ibuprofen but this is no longer effective. She denies any fever or chills. She denies any headache. She has not yet followed up with a dentist. No other complaints at this time. No other modifying factors. Exam demonstrates notable dental caries throughout. No periapical abscess. No facial swelling. No evidence of Ludewig's angina. Patient was offered a dental block. She accepted. Dental block was performed for upper and lower areas. She tolerated this well, and had complete resolution of her pain. We will give her penicillin. She did have a previous allergy to penicillin in the documentation, however the patient states very specifically that she does not have this allergy, she is able to tolerate penicillins throughout her life, and has not had a rash. She would like to utilize penicillins now. We will give a few pills here to go home with and a prescription will be sent to [facility]. Recommend Tylenol Motrin. Dental sheet was given. I have extensively reviewed the treatment plan and discharge instructions with the patient. I have addressed all patient concerns at this time. The patient was made aware of what symptoms to monitor for that would warrant a return to the emergency department. Discussed the plan with the patient, they demonstrate verbal understanding and agreement with our assessment and plan at this time. The documentation in this chart was dictated using [employer] dictation software. Please excuse any dictation errors. HPI General Date/Time Provider Initiated Documentation: 10/30/20 21:28 . HPI Narrative: 30-year-old female with a history of dental disease presents today for left upper and left lower dental pain. Symptoms have been present for the last few days have been gradually worsening. Symptoms were initially managed well with ibuprofen but this is no longer effective. She denies any fever or chills. She denies any headache. She has not yet followed up with a dentist. No other complaints at this time. No other modifying factors. Related Data Home Medications Medication Instructions Recorded Confirmed methadone 100 mg PO DAILY 12/02/18 10/30/20 chlorthalidone 25 mg tablet 25 mg PO DAILY 03/25/20 10/30/20 furosemide 20 mg tablet 20 mg PO BID 03/25/20 10/30/20 levothyroxine 25 mcg tablet 25 mcg PO DAILY 03/25/20 10/30/20 spironolactone 50 mg tablet 50 mg PO DAILY 03/25/20 10/30/20 trazodone 100 mg tablet 200 mg PO QHS PRN tab 03/25/20 10/30/20 penicillin V potassium 500 mg PO QID 10 Days #40 tab 10/30/20 Previous Rx's Medication Instructions Recorded penicillin V potassium 500 mg PO QID 10 Days #40 tab 10/30/20 Allergies Allergy/AdvReac Type Severity Reaction Status Date / Time shellfish derived Allergy Unverified 10/30/20 21:49 General Stated Complaint: DentalOral LINNEA: 4 Review of Systems All systems reviewed & are unremarkable except as noted in HPI and below PFSH Surgical History Cervical Conization/LEEP Family History Mother Diabetes when pt was 6 yo Social History Smoking/Tobacco Use Status: Current every day Tobacco Type: cigarettes Smoking risk assessment performed?: Yes Drug use: Never Do you feel safe at home: Yes Do you feel safe in your relationship?: Yes Exam Narrative Exam Narrative: 1.Const: Well-nourished, Well-developed, appearing stated age 2.Eyes: PERRL, no conjunctival injection, and symmetrical lids. 3.ENT: Atraumatic external nose and ears. Moist MM. Neck: Symmetric, trachea midline, No thyromegaly. Notably poor dentition throughout. Notable dental caries throughout. No periapical abscesses noted. Pain is primarily in the upper and lower left teeth, multiple potential sources of pain. 4.CVS: +S1/S2, No murmurs or gallops. Peripheral pulses 2+ and equal in all extremities. Brisk capillary refill in all extremities. 5.RESP: Unlabored respiratory effort. Clear to auscultation bilaterally. No wheezes rales or rhonchi 6.GI: Soft, Nontender/Nondistended, No hepatosplenomegaly. No guarding or rebound. 7.MSK: Normocephalic/Atraumatic, Extremities w/o deformity or ttp No cyanosis or clubbing, Normal movement of all extremities 8.Skin: Warm, Dry. No rashes or lesions. 9.Neuro: electrical calibrator II-XII grossly intact. Sensation grossly intact, no focal neurologic deficits. 10.Psych: (AAO) x3. Appropriate mood and affect Course Vital Signs Vital signs: Vital Signs Temperature 36.4 C L 10/30/20 21:35 Pulse 98 H 10/30/20 21:35 Respiratory Rate 16 10/30/20 21:35 Blood Pressure 139/88 10/30/20 21:35 Pulse Oximetry 95 10/30/20 21:35 Temperature 36.4 C L 10/30/20 21:35 Temperature Source Tympanic 10/30/20 21:35 Pulse 98 H 10/30/20 21:35 Respiratory Rate 16 10/30/20 21:35 Blood Pressure 139/88 10/30/20 21:35 Blood Pressure Position Sitting 10/30/20 21:35 Pulse Oximetry 95 10/30/20 21:35 Oxygen Delivery Method Room Air 10/30/20 21:35 Oxygen Flow Rate 0 10/30/20 21:35 Pain Level 6 10/30/20 21:35 Procedures Nerve Block Nerve Block 1: Time out performed: Yes Local Anesthetic: Bupivicaine 0.5% Amount of anesthesia used (mL): 5 Side: left Intraoral Nerve Block: superior alveolar Procedure Successful: Yes Patient Tolerated Procedure: well and no complications Complications: none Nerve Block 2: Time out performed: Yes Local Anesthetic: Bupivicaine 0.5% Amount of anesthesia used (mL): 5 Side: left Intraoral Nerve Block: inferior alveolar Procedure Successful: Yes Patient Tolerated Procedure: well Complications: none
[2020-10-30] MEDS: Penicillin V POTASSIUM 500 MG TAB, 4 TABS/BTL PO (21:53)
== END 2020-10-30 21:55 | disposition home or self-care (01) ==
PROVIDERS: Emergency Provider Student in an Organized Health Care Education/Training Program; PCP Nurse Practitioner Family
DX: R68.84 Jaw pain (principal)
CPT/HCPCS: 64450

== ENCOUNTER 2021-03-15 17:51 | Outpatient (REF) | payer MEDICARE, MEDICAID, SELFPAY ==
[2021-03-15 20:38] LABS: Anion Gap 4.5 mmol/L (3-11); BUN 14 mg/dL (7-18); CO2 32.5 mmol/L (21.0-32.0); CREATININE 0.9 mg/dL (0.55-1.02); Calcium 9.6 mg/dL (8.5-10.1); Chloride 100 mmol/L (98-107); Glucose 108 mg/dL (74-106); Sodium 137 mmol/L (136-145); TSH (W/Ref FT4) 2.92 uIU/mL (0.36-3.74)
== END 2021-03-15 17:52 | disposition home or self-care (01) ==
LOC: NCHCN 17:51
PROVIDERS: PCP Nurse Practitioner; Visit Provider Nurse Practitioner
DX: I10 Essential (primary) hypertension (principal); E03.9 Hypothyroidism, unspecified
CPT/HCPCS: 80048; 84443

== ENCOUNTER 2021-03-17 01:37 | Outpatient (CLI) | payer MEDICARE, MEDICAID, SELFPAY ==
--- NOTE | 2021-03-17 | DI.US_ITS ---
Exam(s) US HERNIA EXAM: US HERNIA CLINICAL HISTORY: ? UMBILICAL HERNIA UNDERNEATH UMBILICUS,K42.9. TECHNIQUE: Ultrasound was performed using standard protocol. COMPARISON: CT CT ABDOMEN PELVIS W from 10/07/[address] ABDOMEN PELVIS W from 10/07/2020 FINDINGS: Sonographic assessment utilizing grayscale and color Doppler imaging was performed and targeted to th e area of clinical concern. There is skin thickening but no drainable collection. No hernia is demonstrated in the area scanned. IMPRESSION: Skin thickening. No visible hernia. DATA REPOSITORY:
== END 2021-03-17 01:57 ==
PROVIDERS: PCP Nurse Practitioner; Visit Provider Nurse Practitioner
DX: K42.9 Umbilical hernia without obstruction or gangrene (principal)
CPT/HCPCS: 76857

== ENCOUNTER 2021-04-12 04:55 | Outpatient (CLI) | payer MEDICARE, MEDICAID, SELFPAY ==
--- NOTE | 2021-04-12 08:50 | RT.EKG_ITS ---
APPROVED REPORT Exam: Resting ECG Reason for Exam: HIGH RISK MEDICATION Patient Location: O HR:104 bpm ECG Measurements Heart Rate 104 AXIS WI 176 P 49 QRSd 87 QRS 77 QT 343 T -33 QTc 450 Conclusion Sinus tachycardia...rate> 99
== END 2021-04-12 04:56 | disposition home or self-care (01) ==
LOC: RT 04:55
PROVIDERS: PCP Nurse Practitioner; Visit Provider Family Medicine
DX: Z79.899 Other long term (current) drug therapy (principal)
CPT/HCPCS: 93005; 93010

== ENCOUNTER 2021-04-12 12:25 | Outpatient (REF) | payer MEDICARE, MEDICAID, SELFPAY ==
[2021-04-12 16:26] LABS: HCT 51.3 % (36.0-46.0); HGB 16.7 g/dL (11.2-15.7); MCHC 32.6 % (32.0-36.0); MCV 98.3 fL (80-95); MPV 11.7 fL (8.0-11.0); Platelet Count 245 10^3/uL (130-400); RBC 5.22 10^6/uL (3.93-5.22); RDW 13.3 % (11.7-14.6); RDW-SD 48.4 fL; WBC 9.44 10^3/uL (4.4-10.8)
== END 2021-04-12 12:26 | disposition home or self-care (01) ==
LOC: NCHCN 12:25
PROVIDERS: PCP Nurse Practitioner; Visit Provider Nurse Practitioner
DX: D75.1 Secondary polycythemia (principal)
CPT/HCPCS: 85027

== ENCOUNTER 2021-04-28 09:52 | Outpatient (CLI) | payer MEDICARE, MEDICAID, SELFPAY ==
--- NOTE | 2021-04-28 09:00 | NS.NUTBLAN_ITS ---
Fany was referred for Medical Nutrition Therapy for weight management. 4'10 299 lbs BMI 62. 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 Meds include methadone, levothyroxine, lasix. She reports weighing 180 lbs when she finished high school and started to gain there after. She has hip/knee pain but takes her dog out to walk 6-8 times per day. Food recall indicates that she cooks her own meals, does not rely on convenience foods and does not drink sweetened beverages. She lives with her boyfriend of 8 years who is a good support. Session today focused on weight management strategies by following a lower carb diet with emphasis on complex carbs, lean protein and healthy fats. Encouraged her to log meals on phone sorin. Fany is interested in pursuing weight loss surgery but wants to lose as much weight as possible prior to surgery. Fany to follow up with local bariatric program. Follow up appt. scheduled for 05/23/21 at 9 am.
== END 2021-04-28 09:53 | disposition home or self-care (01) ==
LOC: DS 10:03
PROVIDERS: PCP Nurse Practitioner; Visit Provider Dietitian, Registered
DX: E66.01 Morbid (severe) obesity due to excess calories (principal); Z68.44 Body mass index [BMI] 60.0-69.9, adult; Z71.3 Dietary counseling and surveillance
CPT/HCPCS: 97802

== ENCOUNTER 2021-09-14 14:15 | Emergency (ER) | payer MEDICARE, MEDICAID, SELFPAY ==
[2021-09-14 14:35] VITALS: BP 156/78; PULSE 98; RESP 18; TEMP 37.4; O2SAT 97
--- NOTE | 2021-09-14 15:30 | ED.GENADUL_ITS ---
Discharge Plan Disposition Patient Disposition: HOME Condition: Improving Discharge Details Clinical Impression: Pain, dental Primary Care Provider: Awilda Ponce ED Provider: Ross Alberts Home Meds and New Rx's Prescriptions: New amoxicillin-pot clavulanate 875-125 mg tablet 1 tab PO BID 7 Days Qty: 14 0RF Continued levothyroxine [Synthroid] 25 mcg tablet 25 mcg PO DAILY 0RF furosemide 20 mg tablet 20 mg PO BID 0RF trazodone 100 mg tablet 200 mg PO QHS PRN0RF spironolactone 50 mg tablet 50 mg PO DAILY 0RF chlorthalidone 25 mg tablet 25 mg PO DAILY 0RF methadone 10 mg/5 mL Solution 100 mg PO DAILY 0RF Discharge Instructions Instructions: Toothache (ED) Additional Instructions: Please be seen by dentist in the next couple of days, return to the emergency department for worsening pain swelling fevers chills change in voice or or difficulty swallowing/breathing. Continue take antibiotics as needed Motrin Tylenol at home. Medical Decision Making 31-year-old female presents with painful right lower molars, evidence of likely chronic dental caries, largely absent right lower molars, with retained root, no evidence of periapical abscess, no evidence of deep space infection of head or neck such as Lemierre's or Andrew's angina. Tolerating secretions normal voice no evidence of facial cellulitis. Likely painful teeth from exposed roots. Counseled patient extensively that she will need a root canal within the next several days to weeks. Will start empiric Augmentin. Will perform dental block, and provide analgesia/anti-inflammatory. Home care instructions and return precautions for signs of infection. Resting comfortably no acute distress, instant relief from inferior alveolar block, no evidence of new space infection of head or neck. Patient will follow up with dentist in the next couple of days. Will prescribe Augmentin. Return precautions given HPI General Date/Time Provider Initiated Documentation: 09/14/21 15:10 . HPI Narrative: 31-year-old female history of poor dentition presents with right lower molar dental pain over the past several days. Denies facial swelling trouble swallowing or change in speech. Has not seen a dentist for this issue. Related Data Home Medications Medication Instructions Recorded Confirmed methadone 10 mg/5 mL oral solution 100 mg PO DAILY 12/02/18 09/14/21 chlorthalidone 25 mg tablet 25 mg PO DAILY 03/25/20 09/14/21 furosemide 20 mg tablet 20 mg PO BID 03/25/20 09/14/21 levothyroxine 25 mcg tablet 25 mcg PO DAILY 03/25/20 09/14/21 (Synthroid) spironolactone 50 mg tablet 50 mg PO DAILY 03/25/20 09/14/21 trazodone 100 mg tablet 200 mg PO QHS PRN tab 03/25/20 09/14/21 amoxicillin 875 mg-potassium 1 tab PO BID 7 Days #14 tab 09/14/21 clavulanate 125 mg tablet Previous Rx's Medication Instructions Recorded amoxicillin 875 mg-potassium 1 tab PO BID 7 Days #14 tab 09/14/21 clavulanate 125 mg tablet Allergies Allergy/AdvReac Type Severity Reaction Status Date / Time shellfish derived Allergy Unverified 09/14/21 15:16 General Stated Complaint: DentalOral LINNEA: 5 Review of Systems Narrative: Review of Systems Constitutional: negative Eyes: negative ENT: Right lower molar pain Cardiovascular: negative Respiratory: negative Gastrointestinal: negative : negative Musculoskeletal: negative Skin: negative Neurologic: negative Psych: negative PFSH All Active Problems (Updated 09/14/21 @ 16:54 by Ross Alberts MD) Pain, dental (Acute) Obesity (Chronic) Sleep apnea (Acute) Tachycardia (Acute) Surgical History Cervical Conization/LEEP Family History Mother Diabetes when pt was 6 yo Social History Smoking/Tobacco Use Status: Current every day Tobacco Type: cigarettes Smoking risk assessment performed?: Yes Drug use: Never Substance use type: does not use Do you feel safe at home: Yes Do you feel safe in your relationship?: Yes Exam Narrative Exam Narrative: Physical Examination General: alert, awake, cooperative, resting comfortably, no acute distress HEENT: normocephalic, atraumatic; PERRL, EOM intact, conjunctiva normal; no nasal discharge; moist mucous membranes, poor dentition multiple dental caries, largely absent right lower molars with retained root, no periapical abscess, no submandibular submental or sublingual tenderness or induration, no facial swelling Neck: supple, trachea midline; full ROM Chest: normal to inspection Respiratory: normal respiratory effort, speaking in full sentences, clear to auscultation, no wheezing, rales or rhonchi Cardiac: regular rate, regular rhythm, S1S2 intact, no murmurs rubs or gallops GI: abdomen soft, non-tender, non-distended; no palpable mass or hepatosplenomegaly Skin: no lesions, rashes or trauma appreciated Neuro: AAOx3, normal speech, moving all extremities Extremities: Psych: Appropriate mood and affect Course Vital Signs Vital signs: Vital Signs Temperature 37.4 C 09/14/21 14:35 Pulse 98 H 09/14/21 14:35 Respiratory Rate 18 09/14/21 14:35 Blood Pressure 156/78 H 09/14/21 14:35 Pulse Oximetry 97 09/14/21 14:35 Temperature 37.4 C 09/14/21 14:35 Temperature Source Skin 09/14/21 14:35 Pulse 98 H 09/14/21 14:35 Respiratory Rate 18 09/14/21 14:35 Respiratory Effort 09/14/21 14:41 Blood Pressure 156/78 H 09/14/21 14:35 Blood Pressure Position Sitting 09/14/21 14:35 Pulse Oximetry 97 09/14/21 14:35 Oxygen Delivery Method Room Air 09/14/21 14:35 Oxygen Flow Rate 0 09/14/21 14:35 Pain Level 7 09/14/21 14:41 Procedures Other Description: Dental block, inferior alveolar block, right lower jaw, 3 cc of 0.5% bupivacaine infused into alveolar space and periapical space of right lower jaw, instant relief, no bleeding PAWSS Have you Been Recently Intoxicated or Drunk Within the Last 30 days?: No Have you Ever Experienced Previous Episodes of Alcohol Withdrawal?: No Have you ever Experienced Withdrawal Seizures?: No Have you ever Experienced Delirium Tremens(DT)s?: No Have you ever undergone Alcohol Rehabilitation Treatment (i.e, inpt ot outpatient treatment programs)?: No Have you ever Experienced Blackouts?: No Have you ever Combined Alcohol with other Downers within the last 90 days?: No Have you ever Combined Alcohol with any other Substance of Abuse during the last 90 days?: No Positive Blood Alcohol level on Presentation? [PCS.BAL]: No Evidence of Increased Autonomic Activity (i.e. HR>120, tremor, sweating, agitation, nausea)?: No Result: 0
[2021-09-14] MEDS: Ketorolac 15 MG/ML VIAL IM (15:53)
[2021-09-14] MEDS: Amoxicillin 875/Clav. 125 TAB PO (15:53)
[2021-09-14] MEDS: Bupivacaine 0.5% Pres-Free 30 ML VIAL IJ (16:53)
== END 2021-09-14 17:20 | disposition home or self-care (01) ==
PROVIDERS: Emergency Provider Emergency Medicine; PCP Nurse Practitioner
DX: R68.84 Jaw pain (principal)
CPT/HCPCS: 64400; 96372; J1885

== ENCOUNTER 2022-04-21 15:24 | Outpatient (REF) | payer MEDICARE, MEDICAID, SELFPAY ==
[2022-04-21 15:44] LABS: HCT 52.1 % (36.0-46.0); HGB 17.4 g/dL (11.2-15.7); MCHC 33.4 % (32.0-36.0); MCV 96 fL (80-95); MPV 11.5 fL (8.0-11.0); Platelet Count 218 10^3/uL (130-400); RBC 5.43 10^6/uL (3.93-5.22); RDW 13.5 % (11.7-14.6); WBC 10.38 10^3/uL (4.4-10.8)
[2022-04-21 17:16] LABS: Anion Gap 4.2 mmol/L (3-11); BUN 19 mg/dL (7-18); CO2 36.8 mmol/L (21.0-32.0); CREATININE 0.8 mg/dL (0.55-1.02); Calcium 9.7 mg/dL (8.5-10.1); Calculated LDL 134 mg/dL (<100); Chloride 96 mmol/L (98-107); Cholesterol 217 mg/dL (<200); Estimated GFR 99.71 (mL/min/1.73m2); Glucose 99 mg/dL (74-106); HDL Cholesterol 56 mg/dL (40-60); Potassium 4.6 mmol/L (3.5-5.1); Sodium 137 mmol/L (136-145); Triglyceride 136 mg/dL (<150)
[2022-04-21 17:18] LABS: Hemoglobin A1C 5.8 % (<5.7)
== END 2022-04-21 15:25 | disposition home or self-care (01) ==
LOC: NCHCN 15:24
PROVIDERS: PCP Nurse Practitioner; Visit Provider Nurse Practitioner Family
DX: I10 Essential (primary) hypertension (principal)
CPT/HCPCS: 80048; 80061; 85027; 83036; 84443

== ENCOUNTER 2023-12-07 12:32 | Outpatient (REF) | payer MEDICARE, MEDICAID, SELFPAY ==
[2023-12-07 15:52] LABS: Abs Immature Grans 0.04 10^3/uL (0.0-0.06); Absolute Basophil Count 0.08 10^3/uL (0.0-0.2); Absolute Eosinophil Count 0.08 10^3/uL (0.0-0.7); Absolute Lymphocyte Count 1.81 10^3/uL (1.2-3.4); Absolute Monocyte Count 0.72 10^3/uL (0.1-0.8); Absolute Neutrophil Count 8.19 10^3/uL (1.2-6.7); Basophils % 0.7 %; Eosinophils % 0.7 %; HCT 55.8 % (36.0-46.0); HGB 17.6 g/dL (11.2-15.7); Immature Grans % 0.4 %; Lymphocytes % 16.6 %; MCH 29.5 pg (27.0-33.0); MCHC 31.5 % (32.0-36.0); MCV 94 fL (80-95); MPV 9.6 fL (8.0-11.0); Monocytes % 6.6 %; Nucleated RBC 0.2 % (0.0-0.3); Platelet Count 271 10^3/uL (130-400); RBC 5.97 10^6/uL (3.93-5.22); RDW 18.4 % (11.7-14.6); RDW-SD 57.7 fL; WBC 10.92 10^3/uL (4.4-10.8)
[2023-12-07 16:43] LABS: ALT 36 U/L (14-59); AST 29 U/L (15-37); Albumin 3.4 g/dL (3.4-5.0); Alkaline Phosphatase 134 U/L (46-116); Anion Gap 6.5 mmol/L (3-11); BUN 12 mg/dL (7-18); Bilirubin, Total 0.5 mg/dL (0.2-1.0); CO2 35.5 mmol/L (21.0-32.0); CREATININE 0.8 mg/dL (0.55-1.02); Calcium 9.9 mg/dL (8.5-10.1); Chloride 95 mmol/L (98-107); Estimated GFR 98.48 (mL/min/1.73m2); FREE T4 1.22 ng/dL (0.76-1.46); Glucose 91 mg/dL (74-106); NT-proBNP 423 pg/mL (<300); Potassium 4.2 mmol/L (3.5-5.1); Sodium 137 mmol/L (136-145); TSH 4.44 uIU/Ml (0.36-3.74); Total Protein 7.6 g/dL (6.4-8.2)
== END 2023-12-07 12:33 | disposition home or self-care (01) ==
LOC: NCHCN 12:32
PROVIDERS: Visit Provider Nurse Practitioner Family
DX: I50.9 Heart failure, unspecified (principal); E03.9 Hypothyroidism, unspecified
CPT/HCPCS: 80053; 83880; 84439; 84443; 85025

== ENCOUNTER 2023-12-20 05:22 | Outpatient (CLI) | payer MEDICARE, MEDICAID, SELFPAY ==
--- NOTE | 2023-12-25 10:27 | W.NOCTURNAL ---
Date of service: 12/20/23 Time of Service: 20:41 Nocturnal Oximetry Note: Overnight Oximetry Amount of time analyzed: 4 hours 9 minutes Number of minutes under 88%: 219.9 AMANDA:2.6 Appearance of oxygen saturation pattern: Unable to comment given lack of usable data Recommendation: Unable to comment given lack of usable data Alfreda Lee MD Pulmonary & Critical Care Medicine
== END 2023-12-20 05:23 | disposition home or self-care (01) ==
LOC: RT 05:22
PROVIDERS: Visit Provider Nurse Practitioner Family
DX: R09.02 Hypoxemia (principal)
CPT/HCPCS: 94762

== ENCOUNTER → 2023-12-28 00:26 | Outpatient (CLI) | payer MEDICARE, MEDICAID, SELFPAY ==
--- NOTE | 2023-12-28 07:35 | DI.US_ITS ---
APPROVED REPORT EXAM: Comprehensive 2D, Doppler, and color-flow Echocardiogram Patient Location: Out-Patient Seat Joiner: Ion Curiel RDCS (AE) Indications: Heart failure Other Information Study Quality: Technically Limited. Technically limited study due to body habitus. Conclusion Technically limited and very difficult study Left ventricle appears grossly normal in size and systolic function Right ventricle appears grossly normal in size Both atria appear normal in size Within the limits of the study there is no apparent valvular disease Wall motion Left Ventricle Left ventricle is not well visualized due to body habitus. Unable to assess LV wall thickness. There is no ventricular septal defect visualized. LVEF is within normal limits. Right Ventricle Right ventricle is grossly normal in size. Right ventricular systolic function could not be assessed. Atria The left atrium size is normal. The right atrium size is normal. The interatrial septum is intact wit h no evidence for an atrial septal defect. Aortic Valve Aortic valve is grossly normal in structure. Number of aortic valve leaflets could not be assessed. N o aortic regurgitation is present. Mitral Valve Mitral valve is grossly normal in structure. There is no mitral valve regurgitation noted. Tricuspid Valve Tricuspid valve is not well visualized. There is no tricuspid valve regurgitation noted. Pulmonic Valve Pulmonic valve is not well visualized. There is no pulmonic valvular regurgitation. Great Vessels The aortic root is not well visualized but is probably normal size. Aortic arch is normal in caliber. Aortic arch is not well visualized. The IVC collapses <50% with inspiration. Pericardium There is no pericardial effusion. 2D Dimensions Ao Root d 2.60 cm F: 2.7 - 3.3 Ao Asc Diam d 2.56 cm F: 2.3 - 3.1 M-Mode TAPSE 2.74 cm (M/F) >1.7 LA Volume LA Length A4C 4.1 cm LA Length A2C LA Area A4C s 11.36 cm2 LA Area A2C s LA Vol A4C A-L 27.01 mL LA Vol A2C A-L LA Vol Biplane A-L LA Vol A4C MOD 24.1 mL LA Vol A2C MOD LA Vol BP MOD RA Volume RA Area A4C 12.6 cm2 RA ESV A4C (A-L) 30.5mL RA Vol/BSA A4C A-L RA Length A4C 4.4 cm RA ESV A4C (MOD) 29.3mL LV Diastology MV E Vmax 1.22 (0.4-1.3 m/s) Aortic Valve AoV Vmax 1.40 m/s LVOT Vmax 1.32 m/s AoV Peak Grad 7.8 mmHg LVOT Peak Grad 7.0 mmHg AoV Area (Vmax) 2.92 cm2 LVOT VTI 0.262 m AoV VTI 0.255 m LVOT Mean Grad 4.9 mmHg AoV Mean Le[place]on. 1.03 m/s LVOT SV 80.96 mL AoV Mean Grad 4.6 mmHg LVOT Diam s 1.95 cm AoV Area (VTI) 3.17 cm2 Velocity Ratio 0.94 Pulmonary Valve PV Vmax 1.41 (0.5-1.5 m/s) RVOT Vmax 0.71 m/s PV Peak Grad 7.9 mmHg RVOT Peak Gr. 2.0 mmHg PV Mean Leighton 0.79 m/s RVOT VTI 0.098 m PV Mean Grad 2.9 mmHg RVOT Mean Gr. 1.0 mmHg
== END ==
PROVIDERS: Visit Provider Nurse Practitioner Family
DX: I50.9 Heart failure, unspecified (principal)
CPT/HCPCS: 93306

== ENCOUNTER → 2024-01-04 00:07 | Outpatient (CLI) | payer MEDICARE, MEDICAID, SELFPAY ==
--- NOTE | 2024-01-04 07:59 | DI.RAD_ITS ---
Exam(s) XR CHEST 2V PA LATERAL EXAM: XR CHEST 2V PA LATERAL CLINICAL HISTORY: HYPOXEMIA R09.02 TECHNIQUE: 2D digital imaging was performed. Two views. COMPARISON: No exams were available for comparison FINDINGS: Exam is limited by patient body habitus and under penetration. HEART: Mildly enlarged. Aorta: Not dilated. PULMONARY VASCULATURE: Vascular prominence. LUNGS: Clear mildly increased interstitial markings. Findings could represent CHF. PLEURAL SPACE: No pleural effusion or pneumothorax. BONE:Scoliosis and degenerative changes. Soft tissues: Unremarkable. IMPRESSION: Mild cardiomegaly question mild CHF. DATA REPOSITORY: RADIATION DOSE DELIVERED:
== END ==
PROVIDERS: Visit Provider Nurse Practitioner Family
DX: I51.7 Cardiomegaly (principal)
CPT/HCPCS: 71046

== ENCOUNTER 2024-01-09 14:09 | Outpatient (REF) | payer MEDICARE, MEDICAID, SELFPAY ==
[2024-01-09 15:34] LABS: Abs Immature Grans 0.03 10^3/uL (0.0-0.06); Absolute Basophil Count 0.08 10^3/uL (0.0-0.2); Absolute Eosinophil Count 0.11 10^3/uL (0.0-0.7); Absolute Lymphocyte Count 1.51 10^3/uL (1.2-3.4); Absolute Monocyte Count 0.66 10^3/uL (0.1-0.8); Absolute Neutrophil Count 7.21 10^3/uL (1.2-6.7); Basophils % 0.8 %; Eosinophils % 1.1 %; HGB 17.9 g/dL (11.2-15.7); Immature Grans % 0.3 %; Lymphocytes % 15.7 %; MCHC 30.8 % (32.0-36.0); MCV 91 fL (80-95); Monocytes % 6.9 %; Neutrophils % 75.2 %; Platelet Count 248 10^3/uL (130-400); RBC 6.39 10^6/uL (3.93-5.22); RDW 19.7 % (11.7-14.6); RDW-SD 61.3 fL
[2024-01-09 15:55] LABS: ALT 39 U/L (14-59); AST 29 U/L (15-37); Albumin 3.3 g/dL (3.4-5.0); Alkaline Phosphatase 120 U/L (46-116); BUN 17 mg/dL (7-18); Bilirubin, Total 0.49 mg/dL (0.2-1.0); CREATININE 0.7 mg/dL (0.55-1.02); Calcium 9.7 mg/dL (8.5-10.1); Chloride 96 mmol/L (98-107); Estimated GFR 115.59 (mL/min/1.73m2); Glucose 93 mg/dL (74-106); Potassium 4.3 mmol/L (3.5-5.1); Sodium 138 mmol/L (136-145); Total Protein 7.5 g/dL (6.4-8.2)
[2024-01-09 16:02] LABS: HCT 58.1 % (36.0-46.0)
[2024-01-09 16:03] LABS: Anisocytosis 1+; Diff Comment RBC Morph Reviewed
== END 2024-01-09 14:10 | disposition home or self-care (01) ==
LOC: NCHCN 14:09
PROVIDERS: Visit Provider Nurse Practitioner Family
DX: I50.9 Heart failure, unspecified (principal); R60.0 Localized edema
CPT/HCPCS: 80053; 85025

== ENCOUNTER 2024-03-31 03:26 | Outpatient (CLI) | payer MEDICARE, MEDICAID, SELFPAY ==
--- NOTE | 2024-03-31 | DI.US_ITS ---
Exam(s) US EXTREMITY VENOUS BI EXAM: US EXTREMITY VENOUS BI CLINICAL HISTORY: Bilateral lower leg edema, R60.0; venous stasis and dermatitis;red and warm TECHNIQUE: Grayscale, color, and doppler imaging of the deep venous system of both lower extremities was performed. COMPARISON: No exams were available for comparison FINDINGS: There is no evidence of intraluminal thrombus and there is normal compression and augmentation demons trated within the common femoral veins, femoral veins, and popliteal veins of both lower extremities. In the calves the interrogated veins also exhibit normal compression/ augmentation properties. The greater saphenous veins also appear patent as do the saphenofemoral junctions bilaterally.. IMPRESSION: 1. No ultrasound evidence of DVT in either lower extremity. DATA REPOSITORY:
== END 2024-03-31 03:46 ==
LOC: DI 03:26
PROVIDERS: PCP Nurse Practitioner Family; Visit Provider Nurse Practitioner Family
DX: R60.0 Localized edema (principal)
CPT/HCPCS: 93970

== ENCOUNTER 2024-04-07 02:12 | Outpatient (CLI) | payer MEDICARE, MEDICAID, SELFPAY ==
--- NOTE | 2024-04-07 | DI.CT_ITS ---
Exam(s) CT ABDOMEN PELVIS W EXAM: CT ABDOMEN PELVIS W CLINICAL HISTORY: PERIPHERAL VENOUS INSUFFICIENCY,i87.2,? VESSEL OBSTRUCTION CAUSING VENOUS TECHNIQUE: Imaging Protocol: Axial computed tomography images with coronal and sagittal reformatted images were created and reviewed. CONTRAST MATERIAL: Intravenous: Omnipaque 350 Contrast volume:100 mL Oral: Yes COMPARISON: CT CT ABDOMEN PELVIS W from 10/07/2020 FINDINGS: ABDOMEN: Lung Bases: Scarring or atelectasis is seen in the left lung base. Liver: Normal density. No measurable mass. Portal, Superior Mesenteric, and Splenic Veins: Unremarkable. Gallbladder and Biliary Tract: No radiodense calculus or dilation. Pancreas: Normal density, no abnormal calcifications or inflammatory process. Spleen: Normal. Adrenals: No masses seen. Kidneys: Normal size, contour and axis. No radiodense stones or obstructive uropathy. No masses seen. Abdominal Aorta: Abdominal portion non-dilated. No evidence of dissection, compression or obstruction . IVC: The inferior vena cava is patent without evidence of obstruction. The visualized common iliac, internal iliac, external iliac and femoral veins are patent. Bowel: No obstruction or bowel wall thickening. No evidence of appendicitis. Peritoneal Cavity: No ascites, collection or mesenteric inflammatory response. No free air. Lymph Nodes: Within normal limits. Bones: Within normal limits for the patient's age. Old rib fractures are present. Soft Tissues: There is a moderate size fat containing umbilical hernia. PELVIS: Bladder: Symmetric distention, no gross wall thickening. Reproductive Organs: Unremarkable as visualized. Lymph Nodes: Non-specific enlarged inguinal lymph nodes are present. The largest is seen on the left and measures 3.7 x 1.3 cm (series 10, image 78). Bones: Within normal limits for the patient's age. IMPRESSION: 1. No acute abdominal or pelvic process. 2. No evidence of extrinsic arterial or venous obstruction in the abdomen or pelvis. The abdominal a sara and IVC in the runoffs show normal enhancement. 3. Nonspecific mildly enlarged inguinal lymph nodes. RADIATION DOSE DELIVERED: 1,189.43mGy.cm Total DLP DATA REPOSITORY: All CT scans at this facility are submitted to the National Radiology Data Registry (NRDR) Dose Index Registry (DIR) with the [employer] (A[employer]). RADIATION OPTIMIZATION: All CT scans at this facility use at least one of these dose optimization te chniques: automated exposure control; mA and/or kV adjustment per patient size (includes targeted exa ms where dose is matched to clinical indication); or iterative reconstruction.
[2024-04-07] MEDS: Barium Sulfate 2% W/V-Berry Smoothie 450 ML BTL PO ×2 (07:25→07:26)
[2024-04-07 07:56] LABS: CREATININE 0.7 mg/dL (0.55-1.02); Estimated GFR 115.59 (mL/min/1.73m2)
[2024-04-07] MEDS: Normal Saline - Diluent 50 ML VIAL IJ (09:21)
[2024-04-07] MEDS: Omnipaque 350 MG/ML 500 ML BTL-Imaging package IJ (09:22)
== END 2024-04-07 02:32 ==
LOC: DI 02:12
PROVIDERS: PCP Nurse Practitioner Family; Visit Provider Nurse Practitioner Family
DX: I87.2 Venous insufficiency (chronic) (peripheral) (principal)
CPT/HCPCS: 74177; 82565

== ENCOUNTER 2024-06-02 02:59 | Outpatient (CLI) | payer MEDICARE, MEDICAID, SELFPAY ==
[2024-06-02 07:35] LABS: Abs Immature Grans 0.06 10^3/uL (0.0-0.06); Absolute Basophil Count 0.06 10^3/uL (0.0-0.2); Absolute Eosinophil Count 0.21 10^3/uL (0.0-0.7); Absolute Lymphocyte Count 1.44 10^3/uL (1.2-3.4); Absolute Monocyte Count 0.56 10^3/uL (0.1-0.8); Absolute Neutrophil Count 6.49 10^3/uL (1.2-6.7); Basophils % 0.7 %; Eosinophils % 2.4 %; HCT 51.3 % (36.0-46.0); HGB 16.5 g/dL (11.2-15.7); Immature Grans % 0.7 %; Lymphocytes % 16.3 %; MCHC 32.2 % (32.0-36.0); MCV 100 fL (80-95); MPV 10.2 fL (8.0-11.0); Monocytes % 6.3 %; Neutrophils % 73.6 %; Platelet Count 210 10^3/uL (130-400); RBC 5.15 10^6/uL (3.93-5.22); RDW 14.3 % (11.7-14.6); WBC 8.82 10^3/uL (4.4-10.8)
[2024-06-02 07:46] LABS: Hemoglobin A1C 5.7 % (<5.7)
[2024-06-02 08:01] LABS: Calculated LDL 91 mg/dL (<100); Cholesterol 183 mg/dL (<200); HDL Cholesterol 63 mg/dL (40-60); TSH 2.74 uIU/mL (0.36-3.74); Triglyceride 148 mg/dL (<150)
[2024-06-02 08:23] LABS: FREE T4 0.83 ng/dL (0.76-1.46)
== END 2024-06-02 03:00 | disposition home or self-care (01) ==
LOC: LBO 02:59
PROVIDERS: PCP Nurse Practitioner Family; Visit Provider Nurse Practitioner Family
DX: E03.9 Hypothyroidism, unspecified (principal); R09.02 Hypoxemia
CPT/HCPCS: 36415; 80061; 83036; 84439; 84443; 85025

== ENCOUNTER 2024-07-23 18:24 | Outpatient (REF) | payer MEDICARE, MEDICAID, SELFPAY ==
[2024-07-23 19:02] LABS: Abs Immature Grans 0.03 10^3/uL (0.0-0.06); Absolute Basophil Count 0.09 10^3/uL (0.0-0.2); Absolute Eosinophil Count 0.17 10^3/uL (0.0-0.7); Absolute Lymphocyte Count 1.77 10^3/uL (1.2-3.4); Absolute Monocyte Count 0.58 10^3/uL (0.1-0.8); Absolute Neutrophil Count 7.62 10^3/uL (1.2-6.7); Basophils % 0.9 %; Eosinophils % 1.7 %; HCT 48.7 % (36.0-46.0); HGB 15.8 g/dL (11.2-15.7); Immature Grans % 0.3 %; Lymphocytes % 17.3 %; MCHC 32.4 % (32.0-36.0); MCV 99 fL (80-95); MPV 10.7 fL (8.0-11.0); Monocytes % 5.7 %; Neutrophils % 74.1 %; Platelet Count 229 10^3/uL (130-400); RBC 4.94 10^6/uL (3.93-5.22); RDW 13.4 % (11.7-14.6); RDW-SD 48.3 fL; WBC 10.26 10^3/uL (4.4-10.8)
[2024-07-23 19:39] LABS: ALT 26 U/L (14-59); AST 25 U/L (15-37); Albumin 3.4 g/dL (3.4-5.0); Alkaline Phosphatase 113 U/L (46-116); Anion Gap 1.3 mmol/L (3-11); BUN 12 mg/dL (7-18); Bilirubin, Total 0.39 mg/dL (0.2-1.0); CO2 39.7 mmol/L (21.0-32.0); CREATININE 0.6 mg/dL (0.55-1.02); Calcium 9.9 mg/dL (8.5-10.1); Chloride 98 mmol/L (98-107); Estimated GFR 119.97 (mL/min/1.73m2); Glucose 89 mg/dL (74-106); Potassium 4.1 mmol/L (3.5-5.1); Sodium 139 mmol/L (136-145); Total Protein 8.1 g/dL (6.4-8.2); Vitamin B12 681 pg/mL (193-986)
[2024-07-23 19:40] LABS: Folate > 20.0 ng/mL (8.6-20.0)
== END 2024-07-23 18:25 | disposition home or self-care (01) ==
LOC: NCHCN 18:24
PROVIDERS: PCP Nurse Practitioner Family; Visit Provider Nurse Practitioner Family
DX: I10 Essential (primary) hypertension (principal)
CPT/HCPCS: 80053; 82607; 82746; 85025

== ENCOUNTER 2025-06-25 09:18 | Outpatient (REF) | payer MEDICARE, MEDICAID, SELFPAY ==
[2025-06-25 14:55] LABS: HCT 42.4 % (36.0-46.0); HGB 13.7 g/dL (11.2-15.7); MCH 30.6 pg (27.0-33.0); MCHC 32.3 % (32.0-36.0); MCV 95 fL (80-95); MPV 10.6 fL (8.0-11.0); Platelet Count 278 10^3/uL (130-400); RBC 4.47 10^6/uL (3.93-5.22); RDW 14.2 % (11.7-14.6); RDW-SD 48.9 fL; WBC 11.00 10^3/uL (4.4-10.8)
[2025-06-25 15:22] LABS: Hemoglobin A1C 6.4 % (<5.7)
[2025-06-25 15:29] LABS: ALT 26 U/L (10-49); AST 23 U/L (<34); Albumin 4.1 g/dL (3.2-5.0); Alkaline Phosphatase 142 U/L (46-116); Anion Gap 4.5 mmol/L (3-11); BUN 16 mg/dL (9-23); Bilirubin, Total 0.3 mg/dL (0.2-1.2); CO2 36.1 mmol/L (20.0-31.0); Calcium 9.7 mg/dL (8.3-10.6); Chloride 98 mmol/L (98-107); Cholesterol 184 mg/dL (<200); Glucose 127 mg/dL (74-106); HDL Cholesterol 48 mg/dL (>40); Potassium 3.9 mmol/L (3.5-5.1); Sodium 139 mmol/L (136-145); Total Protein 7.3 g/dL (5.7-8.2)
[2025-06-25 15:31] LABS: TSH (W/Ref FT4) 3.25 uIU/mL (0.55-4.78)
[2025-06-25 15:55] LABS: Folate 13.8 ng/mL (>5.38); Vitamin B12 457 pg/mL (211-911)
== END 2025-06-25 09:19 | disposition home or self-care (01) ==
LOC: NCHCN 09:18
PROVIDERS: PCP Nurse Practitioner Family
DX: E53.8 Deficiency of other specified B group vitamins (principal); E03.9 Hypothyroidism, unspecified; Z01.89 Encounter for other specified special examinations; I10 Essential (primary) hypertension
CPT/HCPCS: 80053; 80061; 85027; 82043; 82570; 82607; 82746; 83036; 84443